=== PATIENT | female | born 1955 | race Caucasian/White ===

== ENCOUNTER 2021-04-06 10:01 | Emergency (ER) | payer OTHER ==
[~2021-04-06] VITALS: Ht 167.6 cm; Wt 63.5 kg
[2021-04-06] MEDS ORDERED: TESSALON PERLE100 M1 PO (14:53)
[2021-04-06] MEDS ORDERED: SYMBICORT 16010.2 GM IH (14:53)
[2021-04-06] MEDS ORDERED: ZITHROMAX500 MG PO (14:53)
[2021-04-06] MEDS ORDERED: MUCINEX DM ER1 EAC1 PO (14:53)
== END 2021-04-06 15:13 ==
LOC: ER 10:01
DX: J06.9 Acute upper respiratory infection, unspecified (principal); Z20.822 Contact with and (suspected) exposure to COVID-19